=== PATIENT | female | born 1960 | race African-American/Black ===

== ENCOUNTER 2017-08-20 09:39 | Emergency (ER) | payer OTHER ==
[~2017-08-20] VITALS: Ht 172.7 cm; Wt 98.0 kg
[2017-08-20 09:41] VITALS: BP 135/87
--- NOTE | 2017-08-20 09:55 | NUR ---
PT AMB WITH W/C TO [facility]
--- NOTE | 2017-08-20 09:56 | NUR ---
57/F BIB FAMILY WITH C/O RT LEG PAIN x YESTERDAY. DENIES TRAUMA. HX: FOOT SURGERY, BLOOD CLOT ON RT LEG 2004, DM, KIDNEY REMOVED 2004. DENIES N/V/D; SKIN IS PINK/WARM/DRY; AAOX4,AMB WITH CANE AT [place]; LUNGS CLEAR BL; HR EVEN AND REGULAR. PATIENT STATES PAIN OF 10/10 AT THIS TIME.
--- NOTE | 2017-08-20 10:03 | NUR ---
Patient being evaluated by DR BRADFORD at bedside.
[2017-08-20] MEDS ORDERED: MORPHINE SULFATE 2 MG/ML SYR IM ONE (10:10)
[2017-08-20] MEDS ORDERED: KETOROLAC 30 MG/ML VIAL IM ONE (10:10)
[2017-08-20] MEDS ORDERED: MORPHINE SULFATE 4 MG/ML SYR ONE (10:25)
--- NOTE | 2017-08-20 10:30 | NUR ---
PT TAKEN TO [facility] VIA W/C ACCOMPANIED BY [facility].
--- NOTE | 2017-08-20 10:30 | NUR ---
Maurilio horne in [facility] - 08/20/17 at 1032 by [email or web address] PT TAKEN TO US VIA W/C
--- NOTE | 2017-08-20 11:10 | NUR ---
PT RETURNED FROM [facility].
--- NOTE | 2017-08-20 11:39 | NUR ---
Patient being reevaluated by DR BRADFORD at bedside.
[2017-08-20 11:44] VITALS: BP 134/75
--- NOTE | 2017-08-20 11:44 | NUR ---
Patient discharged with BP 134/75, DENIES DUMONT AT THIS TIME. Written and verbal after care instructions given and explained. Patient alert, oriented and verbalized understanding of instructions. Ambulatory with steady gait. All questions addressed prior to discharge. ID band removed. Patient advised to follow up with PMD. Rx of KETOROLAC given. Patient educated on indication of medication including possible reaction and side effects. Opportunity to ask questions provided and answered.
--- NOTE | 2017-08-21 16:08 | NUR ---
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
== END 2017-08-20 11:44 | disposition home or self-care (01) ==
LOC: MED 09:39
DX: M17.12 Unilateral primary osteoarthritis, left knee (principal); Z86.718 Personal history of other venous thrombosis and embolism; Z88.1 Allergy status to other antibiotic agents; E11.9 Type 2 diabetes mellitus without complications
CPT/HCPCS: 73590; 82948; 93971; 96372; 99284; J1885; J2270; Q0092

== ENCOUNTER 2017-12-04 12:10 | Emergency (ER) | payer OTHER ==
[~2017-12-04] VITALS: Ht 172.7 cm; Wt 98.0 kg
[2017-12-04 12:13] VITALS: BP 122/71
--- NOTE | 2017-12-04 12:23 | NUR ---
Patient transferred to bed 2 via wheelchair by tech. RN evaluating patient at bedside.
--- NOTE | 2017-12-04 12:23 | NUR ---
Maurilio horne in [facility] - 12/04/17 at 1227 by [email or web address] Patient ambulated to bed 4 with family. RN evaluating patient at bedside.
--- NOTE | 2017-12-04 12:25 | NUR ---
PT C/O SOB AND COUGH WITH BROWN SPUTUM X 1 WEEK. DENIES FEVER. REPORTS SHE SMOKES CIGARETTES DAILY. HX: HTN, DM, HIGH CHOLESTEROLE, ASTHMA, PNA
[2017-12-04] MEDS ORDERED: DEXAMETHASONE 10 MG/ML VIAL IM ONE (13:10)
[2017-12-04] MEDS ORDERED: cefTRIAXone 1,000 MG in LIDOCAINE 1% ***ER ONLY *** 2.1 ML IM ONE (13:10)
[2017-12-04] MEDS ORDERED: ALBUTEROL SULFATE/IPRATROPIU 3 ML SOL IH ONE (13:10)
[2017-12-04] MEDS ORDERED: cefTRIAXone 1,000 MG VIAL ONE (13:41)
[2017-12-04] MEDS ORDERED: LIDOCAINE MPF 1% - 5 mL VIAL 5 ML ONE (13:50)
--- NOTE | 2017-12-04 13:50 | NUR ---
ADMITTING DX: COUGH HX: ASTHMA BRONCHIECTASIS AWAKE AND ALERT RESPONSIVE EDUCATION PROVIDED TO PATIENT WITH ACKNOWLEDGEMENT ON [facility] THERAPY AND RESPIRATORY DRUG ENCOURAGED PATIENT FOR INTERMITTENT DEEP BREATHING DURING THERAPY TOLERATED WELL WITHOUT ADVERSE REACTIONS NOTED
[2017-12-04 14:30] VITALS: BP 129/55
--- NOTE | 2017-12-04 14:30 | NUR ---
Patient discharged with v/s stable. Written and verbal after care instructions given and explained. Patient alert, oriented and verbalized understanding of instructions. Ambulatory with steady gait. All questions addressed prior to discharge. ID band removed. Patient advised to follow up with PMD. Rx of Prednisone, Albuterol, Levaquin given. Patient educated on indication of medication including possible reaction and side effects. Opportunity to ask questions provided and answered.
== END 2017-12-04 14:30 | disposition home or self-care (01) ==
LOC: MED 12:10
DX: J45.998 Other asthma (principal); F17.210 Nicotine dependence, cigarettes, uncomplicated; Z71.6 Tobacco abuse counseling; Z88.1 Allergy status to other antibiotic agents; E11.9 Type 2 diabetes mellitus without complications; I10 Essential (primary) hypertension
CPT/HCPCS: 71045; 94640; 96372; 99284; J0696; J1100; J2001; J7620; Q0092

== ENCOUNTER 2023-05-11 10:38 | Emergency (ER) | payer OTHER ==
[~2023-05-11] VITALS: Ht 167.6 cm; Wt 72.6 kg
[2023-05-11 11:17] VITALS: BP 132/76; PULSE 89; RESP 18; TEMP 98; O2SAT 98
[2023-05-11 11:57] LABS: EOSINOPHILS # (AUTO) 0.1 K/uL (0-0.4); EOSINOPHILS % (AUTO) 1.9 % (0.0-4.0); HEMATOCRIT 30.9 % (36-48); HEMOGLOBIN 10.3 g/dL (12.0-16.0); LYMPHOCYTES # (AUTO) 1.1 K/uL (2.5-16.5); LYMPHOCYTES % (AUTO) 24.1 % (20.5-51.1); MEAN CORPUSCULAR HEMOGLOBIN 28 pg (27-31); MEAN CORPUSCULAR HGB CONC 33 g/dL (33-37); MONOCYTES # (AUTO) 0.8 K/uL (0.8-1.0); MONOCYTES % (AUTO) 17.3 % (1.7-9.3); NEUTROPHILS # (AUTO) 2.6 K/uL (1.8-7.7); NEUTROPHILS % (AUTO) 55.7 % (42.2-75.2); PLATELET COUNT (AUTO) 322 K/uL (140-450); RED BLOOD CELL COUNT(AUTO) 3.68 MIL/uL (4.20-5.40); RED CELL DISTRIBUTION WIDTH 16.1 % (11.6-13.7); WHITE BLOOD COUNT (AUTO) 4.7 K/uL (4.8-10.8)
[2023-05-11 12:16] LABS: ANION GAP 15.7 (8-16); CALCIUM 8.9 mg/dL (8.5-10.1); CARBON DIOXIDE 23.6 mmol/L (21-32); POTASSIUM 4.3 mmol/L (3.5-5.1)
[2023-05-11] MEDS ORDERED: KETOROLAC 60 MG/2 ML VIAL IM ONE (13:35)
[2023-05-11 13:58] LABS: FLU A ANTIGEN negative (NEGATIVE); FLU B ANTIGEN negative (NEGATIVE)
== END 2023-05-11 14:26 | disposition home or self-care (01) ==
LOC: MED 10:38
DX: E11.649 Type 2 diabetes mellitus with hypoglycemia without coma (principal); M79.18 Myalgia, other site; Z20.822 Contact with and (suspected) exposure to COVID-19; I10 Essential (primary) hypertension; F17.200 Nicotine dependence, unspecified, uncomplicated; Z90.49 Acquired absence of other specified parts of digestive tract; Z98.890 Other specified postprocedural states
CPT/HCPCS: 36415; 80048; 81002; 85025; 87426; 87804; 96372; 99283; J1885